=== PATIENT | male | born 1960 | race Caucasian/White ===

== ENCOUNTER 2017-03-21 14:23 | Emergency (ER) | payer OTHER ==
[~2017-03-21] VITALS: Ht 167.6 cm; Wt 53.6 kg
[2017-03-21 14:30] VITALS: TEMP 98.6
[2017-03-21 17:13] VITALS: BP 122/71; PULSE 103
== END 2017-03-21 17:21 | disposition home or self-care (01) ==
LOC: COL.ER 14:23
DX: S90.31XA Contusion of right foot, initial encounter (principal); F60.9 Personality disorder, unspecified; W01.0XXA Fall on same level from slipping, tripping and stumbling without subsequent striking against object, initial encounter